=== PATIENT | male | born 1980 ===

== ENCOUNTER 2018-03-13 11:49 | Emergency (ER) | payer MEDICAID, OTHER ==
[2014-03-25 08:08] VITALS: BMI 25.1
[2018-03-13] MEDS ORDERED: Oxycodone/Acetaminophen 5/325 mg Tab PO ONE (12:33)
[2018-03-13] MEDS ORDERED: Oxycodone/Acetaminophen 5/325 mg Tab ONE (12:39)
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
[2018-03-13 13:20] LABS: BASO # 0.1 K/uL (0.0-0.2); BASO % 0.7 % (0.0-2.0); EOS # 0.1 K/uL (0.0-0.7); EOS % 1.2 % (0.0-4.0); HEMOGLOBIN 14.2 g/dL (12.0-18.0); LYMPH # 1.4 K/uL (1.0-4.3); MEAN CELL VOLUME 89.2 fl (80.0-94.0); MEAN CORPUSCULAR HEMOGLOBIN 30.5 pg (27.0-31.0); MEAN CORPUSCULAR HGB CONC 34.2 g/dL (33.0-37.0); MONO # 0.6 K/uL (0.0-0.8); MONO % 6.9 % (0.0-10.0); NEUT # 7.1 K/uL (1.8-7.0); NEUT % 76.2 % (50.0-75.0); NRBC % 0.1 % (0.0-0.0); RBC 4.64 Mil/uL (4.40-5.90); RED CELL DISTRIBUTION WIDTH 14.1 % (11.5-14.5); WHITE BLOOD COUNT 9.3 K/uL (4.8-10.8)
[2018-03-13 13:28] LABS: ALB/GLOB RATIO 1.3 (1.0-2.1); ALBUMIN 4.3 g/dL (3.5-5.0); ALT/SGPT 19 U/L (21-72); AST/SGOT 29 U/L (17-59); BLOOD UREA NITROGEN 13 mg/dl (9-20); CALCIUM 9.4 mg/dL (8.4-10.2); GFR NON-AFRICAN AMERICAN > 60
[2018-03-13] MEDS ORDERED: Sodium Chloride 0.9% 50 ML IV ONE (13:37)
[2018-03-13] MEDS ORDERED: Iodixanol 320 MG/ML 100 ML BOTTLE IV ONE (13:37)
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
[2018-03-13 13:45] VITALS: RESP 18
[2018-03-13 13:58] VITALS: O2SAT 98
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
[2018-03-13 15:36] VITALS: BP 112/70; PULSE 80; TEMP 98.3
--- NOTE | 2018-03-14 13:18 | CARD ---
APPROVED REPORT Date of service: 03/13/2018 EKG Measurement Heart [id number] CT [id number] [id number] <Conclusion> Normal sinus rhythm Normal ECG
== END 2018-03-13 15:30 | disposition home or self-care (01) ==
LOC: H.ER 11:49
DX: M54.5 Low back pain (principal); V43.62XA Car passenger injured in collision with other type car in traffic accident, initial encounter; Y92.410 Unspecified street and highway as the place of occurrence of the external cause; R20.2 Paresthesia of skin
CPT/HCPCS: 70496; 70498; 72114; 80053; 84484; 85025; 93005; 99284; Q9967

== ENCOUNTER 2018-06-18 10:36 | Emergency (ER) | payer MEDICAID, OTHER ==
[2014-03-25 08:08] VITALS: BMI 25.1
--- NOTE | 2018-06-18 12:53 | ED PDOC ---
HPI: Abdomen Time Seen by Provider: 06/18/18 12:08 Chief Complaint (Nursing): Abdominal Pain Chief Complaint (Provider): Abdominal Pain History Per: Patient History/Exam Limitations: no limitations Onset/Duration Of Symptoms: Days (x2) Current Symptoms Are (Timing): Still Present Additional Complaint(s): Patient is a 38 y/o male with a PMHx of depression, anxiety, asthma, and back problems who presents to the ED for evaluation of intermittent, left-sided abdominal pain ongoing for the past two days. Patient admits to constipation, but denies urinary symptoms, fever, nausea, and vomiting. Patient's last bowel movement was yesterday. Of note, patient has been taking Methadone for relief. PCP: None Provided Past Medical History Vital Signs: Last Vital Signs Temp 98.2 F 06/18/18 10:41 Pulse 66 06/18/18 10:41 Resp 16 06/18/18 10:41 BP 121/81 06/18/18 10:41 Pulse Ox 100 06/18/18 10:41 - Medical History PMH: Anxiety, Asthma, Back Problems, Depression Denies: Diabetes, Hepatitis, HIV, HTN, Chronic Kidney Disease, Seizures, Sexually Transmitted Disease - Surgical History Surgical History: No Surg Hx - Family History Family History: States: Unknown Family Hx - Social History Current smoker - smoking cessation education provided: Yes Ex-Smoker (has not smoked in the last 12 months): Yes - Immunization History Hx Tetanus Toxoid Vaccination: Yes Hx Influenza Vaccination: No Hx Pneumococcal Vaccination: No - Home Medications Home Medications: Ambulatory Orders Medication Instructions Recorded Gabapentin [Neurontin] 300 mg PO BID #60 cap 03/16/18 Mirtazapine [Remeron] 30 mg PO HS #30 tab 03/16/18 traZODone [Desyrel] 100 mg PO HS PRN #30 tab 03/16/18 Polyethylene Glycol 3350 [Miralax] 1 tbs PO DAILY PRN #1 bottle 06/18/18 - Allergies Allergies/Adverse Reactions: Allergies Allergy/AdvReac Type Severity Reaction Status Date / Time shellfish derived Allergy RASH Verified 03/13/18 12:03 fruit Allergy RASH Uncoded 03/13/18 12:03 Review of Systems ROS Statement: Except As Marked, All Systems Reviewed And Found Negative Constitutional: Negative for: Fever Gastrointestinal: Positive for: Abdominal Pain (left-sided), Constipation. Negative for: Nausea, Vomiting Genitourinary Male: Negative for: Dysuria, Frequency, Incontinence Physical Exam - Reviewed Nursing Documentation Reviewed: Yes Vital Signs Reviewed: Yes - Physical Exam Appears: Positive for: Non-toxic, No Acute Distress Head Exam: Positive for: ATRAUMATIC, NORMAL INSPECTION, NORMOCEPHALIC Skin: Positive for: Normal Color, Warm, Dry Eye Exam: Positive for: Normal appearance, EOMI, PERRL Neck: Positive for: Normal, Painless ROM, Supple Cardiovascular/Chest: Positive for: Regular Rate, Rhythm. Negative for: Murmur Respiratory: Positive for: Normal Breath Sounds. Negative for: Respiratory Distress Gastrointestinal/Abdominal: Positive for: Tenderness (left lower quadrant) Back: Positive for: Normal Inspection. Negative for: L CVA Tenderness, R CVA Tenderness, Vertebral Tenderness Extremity: Positive for: Normal ROM. Negative for: Pedal Edema, Deformity Neurologic/Psych: Positive for: Alert, Oriented. Negative for: Motor/Sensory Deficits - Laboratory Results Result Diagrams: 06/18/18 13:00 06/18/18 13:00 - ECG O2 Sat by Pulse Oximetry: 100 (RA) Pulse Ox Interpretation: Normal Medical Decision Making Medical Decision Making: Time: 1230 Impression: Abdominal pain and constipation DDx includes but not limited to constipation, colitis, and diverticulitis. Plan: CT Abd & Pelvis IV Contrast CMP Urine Dipstick CBC PTT Prothrombin Time UA Time: 1453 FINDINGS: LOWER THORAX: Unremarkable. LIVER: Diffuse hepatic steatosis. No gross lesion or ductal dilatation. GALLBLADDER AND BILE DUCTS: Unremarkable. PANCREAS: Unremarkable. No gross lesion or ductal dilatation. SPLEEN: Unremarkable. ADRENALS: Unremarkable. No mass. KIDNEYS AND URETERS: Unremarkable. No hydronephrosis. No solid mass. VASCULATURE: Unremarkable. No aortic aneurysm. No aortic atherosclerotic calcification or mural plaque present. BOWEL: Diffuse stool retention. No obstruction. No gross mural thickening. APPENDIX: The appendix is not clearly or definitively identified. No pericecal inflammatory changes noted. PERITONEUM: Unremarkable. No free fluid. No free air. LYMPH NODES: Unremarkable. No enlarged lymph nodes. BLADDER: Unremarkable. REPRODUCTIVE: Unremarkable. BONES: Bilateral L5 spondylolysis with approximately 2 mm anterior spondylolisthesis of L5 on S1 noted. No acute appearing fracture suggested. No lytic lesions. Scattered benign-appearing bone islands seen left iliac bone sacrum acetabulum and proximal left femur. OTHER FINDINGS: None. IMPRESSION: Stool retention left and right colon. No bowel obstruction seen. Definite div erticulitis seen. Appendix not identified-however no pericecal inflammatory changes noted. Hepatic steatosis. Bilateral L5 spondylolysis with mild 2 mm anterior subluxation of L5 on S1. Other findings as above. Scribe Attestation: Documented by Angel Woodward, acting as a scribe for Sandra Sharif MD. Provider Scribe Attestation: All medical record entries made by the Scribe were at my direction and personally dictated by me. I have reviewed the chart and agree that the record accurately reflects my personal performance of the history, physical exam, medical decision making, and the department course for this patient. I have also personally directed, reviewed, and agree with the discharge instructions and disposition. Disposition - Clinical Impression Clinical Impression: Constipation - Disposition Referrals: [facility] [place] [Outside] [facility] [Outside] Disposition: Routine/Home Disposition Time: 14:56 Condition: STABLE Prescriptions: Polyethylene Glycol 3350 [Miralax] 1 tbs PO DAILY PRN #1 bottle PRN Reason: Constipation Instructions: Constipation in Adults Forms: [email or web address] ([place]), [facility] ED School/Work Excuse
[2018-06-18 13:09] LABS: BASO % 0.2 % (0.0-2.0); EOS # 0.2 K/uL (0.0-0.7); EOS % 2.6 % (0.0-4.0); HEMOGLOBIN 14.1 g/dL (12.0-18.0); LYMPH # 2.2 K/uL (1.0-4.3); LYMPH % 27.5 % (20.0-40.0); MEAN CELL VOLUME 88.5 fl (80.0-94.0); MEAN CORPUSCULAR HEMOGLOBIN 30.3 pg (27.0-31.0); MEAN CORPUSCULAR HGB CONC 34.3 g/dL (33.0-37.0); MEAN PLATELET VOLUME 10.3 fl (7.2-11.7); MONO # 0.6 K/uL (0.0-0.8); MONO % 8.1 % (0.0-10.0); NEUT # 4.9 K/uL (1.8-7.0); NEUT % 61.6 % (50.0-75.0); NRBC % 0.1 % (0.0-0.0); RBC 4.65 Mil/uL (4.40-5.90); RED CELL DISTRIBUTION WIDTH 13.8 % (11.5-14.5); WHITE BLOOD COUNT 7.9 K/uL (4.8-10.8)
[2018-06-18 13:16] LABS: INR 0.9; PROTHROMBIN TIME 10.7 Seconds (9.8-13.1)
[2018-06-18 13:19] LABS: PARTIAL THROMBOPLASTIN TIME 31.1 Seconds (25.6-37.1)
[2018-06-18 13:21] LABS: URINE BILIRUBIN NEGATIVE (NEGATIVE); URINE BLOOD NEGATIVE (NEGATIVE); URINE CLARITY CLEAR (Clear); URINE COLOR STRAW (YELLOW); URINE GLUCOSE (UA) NEG (NEGATIVE); URINE LEUKOCYTE ESTERASE NEG Leu/uL (Negative); URINE PROTEIN NEGATIVE (NEGATIVE); URINE UROBILINOGEN 0.2-1.0 mg/dL (0.2-1.0)
[2018-06-18 13:29] LABS: ALB/GLOB RATIO 1.3 (1.0-2.1); ALBUMIN 4.2 g/dL (3.5-5.0); ALT/SGPT 16 U/L (21-72); AST/SGOT 25 U/L (17-59); BLOOD UREA NITROGEN 14 mg/dl (9-20); CALCIUM 9.4 mg/dL (8.4-10.2); GFR NON-AFRICAN AMERICAN > 60
[2018-06-18] MEDS ORDERED: Iohexol 300 100 ML IJ ONE (13:56)
[2018-06-18] MEDS ORDERED: Sodium Chloride 0.9% 50 ML IV ONE (13:56)
--- NOTE | 2018-06-18 14:57 | CT ---
Date of service: 06/18/2018 PROCEDURE: CT Abdomen and Pelvis with contrast HISTORY: LLQ pain COMPARISON: None. TECHNIQUE: Contrast dose: 95 mL Omnipaque 300 Radiation dose: Total exam DLP = 361.07 mGy-cm. This CT exam was performed using one or more of the following dose reduction techniques: Automated exposure control, adjustment of the mA and/or kV according to patient size, and/or use of iterative reconstruction technique. FINDINGS: LOWER THORAX: Unremarkable. LIVER: Diffuse hepatic steatosis. No gross lesion or ductal dilatation. GALLBLADDER AND BILE DUCTS: Unremarkable. PANCREAS: Unremarkable. No gross lesion or ductal dilatation. SPLEEN: Unremarkable. ADRENALS: Unremarkable. No mass. KIDNEYS AND URETERS: Unremarkable. No hydronephrosis. No solid mass. VASCULATURE: Unremarkable. No aortic aneurysm. No aortic atherosclerotic calcification or mural plaque present. BOWEL: Diffuse stool retention. No obstruction. No gross mural thickening. APPENDIX: The appendix is not clearly or definitively identified. No pericecal inflammatory changes noted. PERITONEUM: Unremarkable. No free fluid. No free air. LYMPH NODES: Unremarkable. No enlarged lymph nodes. BLADDER: Unremarkable. REPRODUCTIVE: Unremarkable. BONES: Bilateral L5 spondylolysis with approximately 2 mm anterior spondylolisthesis of L5 on S1 noted. No acute appearing fracture suggested. No lytic lesions. Scattered benign-appearing bone islands seen left iliac bone sacrum acetabulum and proximal left femur. OTHER FINDINGS: None. IMPRESSION: Stool retention left and right colon. No bowel obstruction seen. Definite diverticulitis seen. Appendix not identified-however no pericecal inflammatory changes noted. Hepatic steatosis. Bilateral L5 spondylolysis with mild 2 mm anterior subluxation of L5 on S1. Other findings as above.
[2018-06-18 15:16] VITALS: BP 140/91; PULSE 62; RESP 18; TEMP 98.1
[2018-06-22 15:04] VITALS: O2SAT 100
== END 2018-06-18 15:27 | disposition home or self-care (01) ==
LOC: H.ER 10:36
DX: K59.00 Constipation, unspecified (principal)
CPT/HCPCS: 74177; 80053; 81003; 85025; 85610; 85730; 99283; Q9967

== ENCOUNTER 2018-10-04 01:53 | Emergency (ER) | payer MEDICAID ==
[2014-03-25 08:08] VITALS: BMI 25.1
[2018-10-04 01:59] VITALS: BP 135/88; PULSE 96; RESP 16; O2SAT 98
[2018-10-04 02:04] VITALS: TEMP 97.8
[2018-10-04] MEDS ORDERED: Naproxen 500 MG TAB PO ONE ×2 (02:24→02:41)
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
[2018-10-04] MEDS ORDERED: Lidocaine/Prilocaine CREAM 5GM TP ONE (02:45)
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
== END 2018-10-04 04:32 | disposition home or self-care (01) ==
LOC: H.ER 01:53
DX: L03.011 Cellulitis of right finger (principal)